=== PATIENT | female | born 1980 | race Caucasian/White ===

== ENCOUNTER 2023-11-24 08:14 | Emergency (ER) | payer BC, MEDICAID, SELFPAY ==
--- NOTE | 2023-11-24 08:23 | ECG_ITS ---
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 Measurements Intervals [place] Rate: 82 P: 23 NC: 162 QRS: 14 QRSD: 80 T: 51 QT: 378 QTc: 443 Interpretive Statements SINUS RHYTHM Compared to ECG 09/28/2016 16:29:42 No significant changes Electronically Signed On 11-25-2023 19:17:59 CDT by Bakari Gómez M.D. [id number]
--- NOTE | 2023-11-24 08:23 | XRR_ITS ---
PROCEDURE INFORMATION: Exam: XR Chest Exam date and time: 11/24/2023 8:54 AM Age: 43 years old Clinical indication: Pain; Angina pectoris; Additional info: Chest pain TECHNIQUE: Imaging protocol: Radiologic exam of the chest. Views: 1 view. COMPARISON: CR XR thoracic spine 2V [id number] 12/19/2017 10:06 AM FINDINGS: Lungs: Unremarkable. No consolidation. Pleural spaces: Unremarkable. No pleural effusion. No pneumothorax. Heart/Mediastinum: Unremarkable. No cardiomegaly. Bones/joints: Unremarkable. Soft tissues: Probable diaphragmatic hernia. XR/XR chest 1V portable [id number] IMPRESSION: No acute findings.
[2023-11-24] MEDS: lidocaine 2% viscous 15 ML, aluminum-mag hydrox-simethicon 30 ML, sucralfate oral liq 1 GM PO (08:29)
--- NOTE | 2023-11-24 08:29 | ED_ITS ---
HPI - Chest Pain 2 General: Chief Complaint: Chest Pain Stated Complaint: Chest pain Time Seen by Provider: 11/24/23 08:22 History of Present Illness: Patient has had epigastric/chest pain for the last several hours. She says it is a burning pain. She says somewhat like her usual heartburn but different and worse. He says at 1 point it felt like there was a balloon in her chest and she could not expand her ribs. No cough. No fevers. No nausea or vomiting. No abdominal pain. Review of Systems 2 Narrative: Constitutional symptoms: Negative except as documented in HPI. Skin symptoms: Negative except as documented in HPI. Eye symptoms: Negative except as documented in HPI. ENMT symptoms: Negative except as documented in HPI. Respiratory symptoms: Negative except as documented in HPI. Cardiovascular symptoms: Negative except as documented in HPI. Gastrointestinal symptoms: Negative except as documented in HPI. Genitourinary symptoms: Negative except as documented in HPI. Musculoskeletal symptoms: Negative except as documented in HPI. Neurologic symptoms: Negative except as documented in HPI. Psychiatric symptoms: Negative except as documented in HPI. Endocrine symptoms: Negative except as documented in HPI. Physical Exam 2 Narrative: EXAM NARRATIVE: General: Alert, no acute distress. Skin: Warm, dry. Head: Normocephalic, atraumatic. Neck: Supple, trachea midline. Eye: Extraocular movements are intact. Ears, nose, mouth and throat: mucosa moist. Cardiovascular: Regular, Normal peripheral perfusion. Respiratory: Lungs are clear to auscultation, respirations are non-labored, breath sounds are equal, Symmetrical chest wall expansion. Gastrointestinal: Soft, Nontender, Non distended, Normal bowel sounds. Musculoskeletal: Normal ROM, no deformity. Neurological: Alert and oriented, No focal neurological deficit observed. Psychiatric: Cooperative, appropriate mood & affect. Course 2 Vital Signs: Vital signs: Vital Signs Pulse Rate 70 11/24/23 10:00 Blood Pressure 127/83 11/24/23 10:00 Pulse Oximetry 98 11/24/23 10:00 MDM - Chest Pain Medical Decision Making Differential diagnosis for patient with chest pain includes but is not limited to and based on the above HPI, review of systems and physical exam: Pneumonia. unstable angina. angina. Acute coronary syndrome / [place]. Pulmonary embolism. Costochondritis / musculoskeletal. Pleurisy. Pericarditis. Esophageal spasm. Pancreatis. Cholecystitis. Workup: Lab work, chest X-ray and EKG ordered to evaluate, rule in and rule out above pathologies. Lab Review: Laboratory results were reviewed and interpreted by myself the emergency room physician. Lab work is unremarkable. No leukocytosis. No anemia. BUN and creatinine are 6 and 0.6. Serial troponins are negative. EKG: Time 821 rate 82 normal sinus rhythm, No ST-T changes, no ectopy, normal GA & QRS intervals, This was reviewed and interpreted by myself the ER physician at 825. Chest x-ray: No acute process. No infiltrate. No pneumothorax. No cardiomegaly. This was reviewed and interpreted by myself the ER physician. I reviewed the patient's medical record. Reexamination: Patient remained stable. No increased work of breathing. No altered mental status. No focal motor deficits. Emergency Department Assessment of Chest Pain Score (EDACS) from [employer] on 11/24/2023 All calculations should be rechecked by clinician prior to use RESULT SUMMARY: 2 points Low risk by the EDACS Score. If the patient also has: (1) EKG without new ischemic changes and (2) negative initial and 2-hour troponins, then this patient is safe for discharge to early outpatient follow-up investigation (or proceed to earlier inpatient testing). If EKG with ischemic changes or positive troponin, they are not low risk and require normal risk stratification. INPUTS: Age ?> 44 years Sex ?> 0 = Female Known coronary artery disease or >= risk factors ?> 0 = No Diaphoresis ?> 0 = No Pain radiates to arm, shoulder, neck, or jaw ?> 0 = No Pain occurred or worsened with inspiration ?> 0 = No Pain is reproduced by palpation ?> 0 = No Lab Data 11/24/23 09:20 11/24/23 09:20 Radiology Impressions Chest X-Ray 11/24/23 08:23 IMPRESSION: No acute findings. Laboratory Results WBC 7.95 10^3/uL (3.29-11.43) 11/24/23 09:20 RBC 4.52 10^6/uL (3.85-5.65) 11/24/23 09:20 Hgb 12.20 g/dL (11.27-16.99) 11/24/23 09:20 Hct 38.0 % (36-47) 11/24/23 09:20 MCV 84.1 fl (85-98) L 11/24/23 09:20 MCH 27.0 pg (27-33) 11/24/23 09:20 MCHC 32.1 g/dL (30-55) 11/24/23 09:20 RDW 16.1 % (12.1-15.1) H 11/24/23 09:20 Plt Count 303 10^3/cmm (157-399) 11/24/23 09:20 MPV 10.7 fL (7.4-10.4) H 11/24/23 09:20 Neut % (Auto) 62.1 % 11/24/23 09:20 Lymph % (Auto) 25.8 % 11/24/23 09:20 [place] % (Auto) 6.5 % 11/24/23 09:20 Eos % (Auto) 4.7 % 11/24/23 09:20 Baso % (Auto) 0.6 % 11/24/23 09:20 Neut # (Auto) 4.94 10^3/uL (1.8-7.7) 11/24/23 09:20 Lymph # (Auto) 2.1 10^3/uL (0.8-4.8) 11/24/23 09:20 [place] # (Auto) 0.5 10^3/uL (0.2-0.9) 11/24/23 09:20 Eos # (Auto) 0.4 10^3/uL (0.0-0.8) 11/24/23 09:20 Baso # (Auto) 0.1 10^3/uL (0.0-0.1) 11/24/23 09:20 Nucleated RBC % (auto) 0 % 11/24/23 09:20 Nucleated RBCs # 0.0 /100WBC 11/24/23 09:20 Sodium 137 mmol/L (136-145) 11/24/23 09:20 Potassium 4.2 mmol/L (3.5-5.1) 11/24/23 09:20 Chloride 103 mmol/L (98-107) 11/24/23 09:20 Carbon Dioxide 23 mmol/L (22-29) 11/24/23 09:20 Anion Gap 15.2 (5-19) 11/24/23 09:20 BUN 6 mg/dL (6-20) 11/24/23 09:20 Creatinine 0.6 mg/dL (0.5-0.9) 11/24/23 09:20 GFR Calculation 109.6 mL/min (90-130) 11/24/23 09:20 Glucose 111 mg/dL (65-115) 11/24/23 09:20 Calculated Osmolality 282 mOsm/kg (285-295) L 11/24/23 09:20 Calcium 9.7 mg/dL (8.5-10.5) 11/24/23 09:20 Total Bilirubin 0.2 mg/dL (0.15-1.2) 11/24/23 09:20 AST 26 U/L (0-32) 11/24/23 09:20 ALT 26 U/L (0-33) 11/24/23 09:20 Alkaline Phosphatase 116 U/L (35-105) H 11/24/23 09:20 Troponin T Baseline < 6 ng/L (0-10) 11/24/23 09:20 Troponin T 120 Minute 6.00 ng/L (0-10) 11/24/23 11:04 Delta Troponin T 0.82181 ABS# (0-10) 11/24/23 11:04 C-Reactive Protein 9.7 mg/L (0.0-4.9) H 11/24/23 09:20 Total Protein 7.8 g/dL (6.6-8.7) 11/24/23 09:20 Albumin 4.0 g/dL (3.5-5.2) 11/24/23 09:20 Globulin 3.8 g/dL (1.3-4.6) 11/24/23 09:20 All radiology interpretation(s) finalized by discharge Other Data Assessment and plan: Noncardiac chest pain -Patient had improvement with GI cocktail. This is likely GI in nature - Discharged home - Discussed findings and plan with patient. Answered any questions. - All laboratory values were reviewed and interpreted personally by myself, the ER physician - All imaging was reviewed and interpreted personally by myself, the ER physician. - Evaluation and treatment of this problem were appropriate in the emergency setting Discharge Plan Discharge Patient Disposition: Home Clinical Impression: Atypical chest pain Condition: Stable Prescriptions: New Carafate 1 gram tablet 1 g PO TID 28 Days Qty: 84 0RF Rx Instructions: with meals No Action Nexium 24HR 20 mg Capsule,Delayed Release(Dr/Ec) 80 mg PO QPM levocetirizine 5 mg tablet 5 mg PO BEDTIME PRN (Reason: ALLERGIES) Discharge Orders: Discharge ED (Routine); Ordered 11/24/23 Ordered By: Leonor Skinner Referrals: Catherine Gold, [employer] [Primary Care Provider] - Discharge Diet: Usual diet Discharge Activity: Resume usual activity Patient Instructions: Esophageal Spasm (ED), Gastroesophageal Reflux in Infants (ED) Coding Level of Care Code ED Communication Center Coordinator for Josephine Us
[2023-11-24 08:32] VITALS: BMI 43.8
[2023-11-24 09:29] LABS: Basophils # 0.1 10^3/uL (0.0-0.1); Basophils % 0.6 %; Eosinophils # 0.4 10^3/uL (0.0-0.8); Eosinophils % 4.7 %; Lymphocytes # 2.1 10^3/uL (0.8-4.8); Lymphocytes % 25.8 %; Mean Corpuscular HGB Conc 32.1 g/dL (30-55); Mean Corpuscular Volume 84.1 fl (85-98); Mean Platelet Volume 10.7 fL (7.4-10.4); Monocytes # 0.5 10^3/uL (0.2-0.9); Monocytes % 6.5 %; Neutrophils # 4.94 10^3/uL (1.8-7.7); Neutrophils % 62.1 %; Nucleated Red Blood Cells % 0 %; Platelet Count 303 10^3/cmm (157-399); Red Blood Count 4.52 10^6/uL (3.85-5.65); Red Cell Distribution Width 16.1 % (12.1-15.1); White Blood Count 7.95 10^3/uL (3.29-11.43)
[2023-11-24 09:35] VITALS: BP 125/86; PULSE 75; O2SAT 95
[2023-11-24 09:50] LABS: Troponin(5th) Baseline < 6 ng/L (0-10)
[2023-11-24 09:53] LABS: Alanine Aminotransferase 26 U/L (0-33); Alkaline Phosphatase 116 U/L (35-105); Blood Urea Nitrogen 6 mg/dL (6-20); C Reactive Protein 9.7 mg/L (0.0-4.9); Calcium 9.7 mg/dL (8.5-10.5); Carbon Dioxide 23 mmol/L (22-29); Chloride 103 mmol/L (98-107); Globulin 3.8 g/dL (1.3-4.6); Glomerular Filtration Rate 109.6 mL/min (90-130); Glucose 111 mg/dL (65-115); Osmolality Calculated 282 mOsm/kg (285-295); Sodium 137 mmol/L (136-145); Total Bilirubin 0.2 mg/dL (0.15-1.2); Total Protein 7.8 g/dL (6.6-8.7)
[2023-11-24 09:59] LABS: Anion Gap 15.2 (5-19); Aspartate Amino Transferase 26 U/L (0-32); Potassium 4.2 mmol/L (3.5-5.1)
[2023-11-24 10:00] VITALS: BP 127/83; PULSE 70; O2SAT 98
--- NOTE | 2023-11-24 11:01 | ECG_ITS ---
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 Measurements Intervals [place] Rate: 73 P: 8 [place]: 172 QRS: 5 QRSD: 85 T: 26 QT: 377 QTc: 418 Interpretive Statements SINUS RHYTHM Compared to ECG 11/24/2023 08:21:36 No significant changes Electronically Signed On 11-25-2023 19:49:59 CDT by Bakari Gómez M.D. [email or web address] medical [email or web address] Enginesmercy health west [email or web address]/[id number]
[2023-11-24 11:26] LABS: Troponin 5 2HR Delta 0.00001 ABS# (0-10)
[2023-11-24 11:49] VITALS: BP 125/80; PULSE 72; O2SAT 97
== END 2023-11-24 11:50 | disposition home or self-care (01) ==
PROVIDERS: Emergency Provider Emergency Medicine; PCP Nurse Practitioner Family
DX: R07.89 Other chest pain (principal)
CPT/HCPCS: 71045; 80053; 84484; 85025; 86140; 93005; 99285

== ENCOUNTER 2024-02-01 22:42 | Emergency (ER) | payer BC, MEDICAID, SELFPAY ==
--- NOTE | 2024-02-01 22:43 | ECG_ITS ---
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 Measurements Intervals [place] Rate: 65 P: 21 PA: 161 QRS: 6 QRSD: 89 T: 24 QT: 388 QTc: 405 Interpretive Statements SINUS RHYTHM POSSIBLE RIGHT VENTRICULAR CONDUCTION DELAY [RSR (QR) IN V1/V2] Compared to ECG 11/24/2023 11:01:07 No significant changes Electronically Signed On 02-02-2024 18:45:36 CDT by Mykel Wick M.D. [id number]
[2024-02-01 22:44] VITALS: BP 124/85; PULSE 63; RESP 16; TEMP 36.6; O2SAT 99
--- NOTE | 2024-02-01 22:44 | XRR_ITS ---
PROCEDURE INFORMATION: Exam: XR Chest Exam date and time: 02/01/2024 11:05 PM Age: 43 years old Clinical indication: Chest wall pain and radiating; Additional info: Chest pain, radiates to R shoulder TECHNIQUE: Imaging protocol: Radiologic exam of the chest. Views: 1 view. COMPARISON: CR XR chest 1V portable [id number] 11/24/2023 8:54 AM FINDINGS: Lungs: Unremarkable. No consolidation. Pleural spaces: Unremarkable. No pleural effusion. No pneumothorax. Heart/Mediastinum: Heart remains perhaps slightly enlarged. Small to moderate-sized hiatal hernia. No change from prior. Bones/joints: Unremarkable. XR/XR chest 1V portable [id number] IMPRESSION: 1. No acute findings. 2. Borderline large heart with hiatal hernia again seen.
[2024-02-01 23:10] LABS: Basophils % 0.4 %; Eosinophils # 0.2 10^3/uL (0.0-0.8); Eosinophils % 2.3 %; Hematocrit 35.6 % (36-47); Lymphocytes # 2.7 10^3/uL (0.8-4.8); Lymphocytes % 25.2 %; Mean Corpuscular Hemoglobin 26.5 pg (27-33); Mean Corpuscular Volume 82.6 fl (85-98); Mean Platelet Volume 10.7 fL (7.4-10.4); Monocytes # 0.6 10^3/uL (0.2-0.9); Monocytes % 5.6 %; Neutrophils # 6.99 10^3/uL (1.8-7.7); Neutrophils % 66.1 %; Nucleated Red Blood Cells % 0 %; Platelet Count 301 10^3/cmm (157-399); Red Blood Count 4.31 10^6/uL (3.85-5.65); Red Cell Distribution Width 15.6 % (12.1-15.1); White Blood Count 10.56 10^3/uL (3.29-11.43)
[2024-02-01 23:19] LABS: HCG, Serum Qual Negative (Negative)
[2024-02-01 23:28] LABS: Troponin(5th) Baseline < 6 ng/L (0-10)
[2024-02-01 23:34] LABS: Alanine Aminotransferase 14 U/L (0-33); Alkaline Phosphatase 113 U/L (35-105); Aspartate Amino Transferase 16 U/L (0-32); Blood Urea Nitrogen 11 mg/dL (6-20); Calcium 8.8 mg/dL (8.5-10.5); Carbon Dioxide 20 mmol/L (22-29); Chloride 102 mmol/L (98-107); Globulin 2.9 g/dL (1.3-4.6); Glomerular Filtration Rate 109.6 mL/min (90-130); Glucose 108 mg/dL (65-115); Osmolality Calculated 278 mOsm/kg (285-295); Sodium 134 mmol/L (136-145); Total Bilirubin 0.2 mg/dL (0.15-1.2); Total Protein 6.9 g/dL (6.6-8.7)
--- NOTE | 2024-02-02 00:29 | ED_ITS ---
HPI - Chest Pain 2 General: Chief Complaint: Chest Pain Stated Complaint: chest pain through back Time Seen by Provider: 02/01/24 22:52 History of Present Illness: Patient presents to the ER with right-sided chest pain/epigastric pain that radiates straight to her back and her shoulder blade area. Patient says she has had this before. Patient has a history of gastroesophageal reflux disease. Patient took Nexium, Carafate, baking soda water and ice cream with no relief today. This started about 4 PM and she has not ate or drink anything other than medicine since then. Patient denies any shortness of breath, nausea, diaphoresis, she said the last time she had this they gave her GI cocktail and it helped tremendously. Review of Systems 2 General: Reports: 10 or more systems reviewed and unremarkable except in HPI and below Physical Exam 2 Const: COMMON NORMALS: no acute distress, average body habitus, patient oriented x3, no limitations, healthy appearing, alert and well nourished Neck/C-Spine: COMMON NORMALS: no JVD Chest: COMMONS NORMALS: normal inspection of the chest and normal palpation of entire chest wall Resp: COMMON NORMALS: normal respiratory effort, No retractions, No use of accessory muscles and clear to auscultation bilaterally AUSCULTATION: clear to auscultation bilaterally Cardio: COMMON NORMALS: no JVD, regular rate, regular rhythm, S1 normal heart sound present, S2 normal heart sound present, No gallops present (Cardio), No clicks present (Cardio), No murmurs present (Cardio) and No rub (Cardio) R ATE: regular rate RHYTHM: regular rhythm HEART SOUNDS: S1 normal heart sound present and S2 normal heart sound present GI: COMMON NORMALS: Normal to inspection, nondistended, normoactive bowel sounds present, Soft to palpation, non-tender, No hepatosplenomegaly present and no masses PALPATION: Yes Soft to palpation and Yes No hepatosplenomegaly present Neuro: COMMON NORMALS: patient oriented x3 SENSORIUM/ORIENTATION: Yes alert Course 2 Vital Signs: Vital signs: Vital Signs Temperature 97.9 F 02/01/24 22:44 Pulse Rate 62 02/02/24 04:07 Respiratory Rate 16 02/02/24 04:07 Blood Pressure 135/83 02/02/24 04:07 Pulse Oximetry 98 02/02/24 04:07 Oxygen Delivery Me thod Room Air 02/02/24 04:07 MDM - Chest Pain Medical Decision Making Patient presented with chest pain and was worked up in a standard chest pain fashion, patient was given a GI cocktail which seemed to relieve the pain. Lab work was unremarkable. Patient be discharged home with a diagnosis of GERD and placed on Pepcid on top of her Nexium and Carafate. Differential Diagnosis Unlikely acute massive pulmonary embolism, acute respiratory failure, acute myocardial infarction, cardiac arrest or sudden cardiac Medical Records I reviewed the patient's medical records. Lab Data I reviewed the patient's lab results. 02/01/24 23:04 02/01/24 23:04 Radiology Impressions Chest X-Ray 02/01/24 22:44 IMPRESSION: 1. No acute findings. 2. Borderline large heart with hiatal hernia again seen. Laboratory Results WBC 10.56 10^3/uL (3.29-11.43) 02/01/24 23:04 RBC 4.31 10^6/uL (3.85-5.65) 02/01/24 23:04 Hgb 11.40 g/dL (11.27-16.99) 02/01/24 23:04 Hct 35.6 % (36-47) L 02/01/24 23:04 MCV 82.6 fl (85-98) L 02/01/24 23:04 MCH 26.5 pg (27-33) L 02/01/24 23:04 MCHC 32.0 g/dL (30-55) 02/01/24 23:04 RDW 15.6 % (12.1-15.1) H 02/01/24 23:04 Plt Count 301 10^3/cmm (157-399) 02/01/24 23:04 MPV 10.7 fL (7.4-10.4) H 02/01/24 23:04 Neut % (Auto) 66.1 % 02/01/24 23:04 Lymph % (Auto) 25.2 % 02/01/24 23:04 [place] % (Auto) 5.6 % 02/01/24 23:04 Eos % (Auto) 2.3 % 02/01/24 23:04 Baso % (Auto) 0.4 % 02/01/24 23:04 Neut # (Auto) 6.99 10^3/uL (1.8-7.7) 02/01/24 23:04 Lymph # (Auto) 2.7 10^3/uL (0.8-4.8) 02/01/24 23:04 Person # (Auto) 0.6 10^3/uL (0.2-0.9) 02/01/24 23:04 Eos # (Auto) 0.2 10^3/uL (0.0-0.8) 02/01/24 23:04 Baso # (Auto) 0.0 10^3/uL (0.0-0.1) 02/01/24 23:04 Nucleated RBC % (auto) 0 % 02/01/24 23:04 Nucleated RBCs # 0.0 /100WBC 02/01/24 23:04 Sodium 134 mmol/L (136-145) L 02/01/24 23:04 Potassium 4.0 mmol/L (3.5-5.1) 02/01/24 23:04 Chloride 102 mmol/L (98-107) 02/01/24 23:04 Carbon Dioxide 20 mmol/L (22-29) L 02/01/24 23:04 Anion Gap 16.0 (5-19) 02/01/24 23:04 BUN 11 mg/dL (6-20) 02/01/24 23:04 Creatinine 0.6 mg/dL (0.5-0.9) 02/01/24 23:04 GFR Calculation 109.6 mL/min (90-130) 02/01/24 23:04 Glucose 108 mg/dL (65-115) 02/01/24 23:04 Calculated Osmolality 278 mOsm/kg (285-295) L 02/01/24 23:04 Calcium 8.8 mg/dL (8.5-10.5) 02/01/24 23:04 Total Bilirubin 0.2 mg/dL (0.15-1.2) 02/01/24 23:04 AST 16 U/L (0-32) 02/01/24 23:04 ALT 14 U/L (0-33) 02/01/24 23:04 Alkaline Phosphatase 113 U/L (35-105) H 02/01/24 23:04 Troponin T Baseline < 6 ng/L (0-10) 07/04/24 23:04 Troponin T 120 Minute 6.00 ng/L (0-10) 02/02/24 03:50 Delta Troponin T 0.04614 ABS# (0-10) 02/02/24 03:50 Total Protein 6.9 g/dL (6.6-8.7) 02/01/24 23:04 Albumin 4.0 g/dL (3.5-5.2) 02/01/24 23:04 Globulin 2.9 g/dL (1.3-4.6) 02/01/24 23:04 HCG, Qual Negative (Negative) 02/01/24 23:04 All radiology interpretation(s) finalized by discharge Discharge Plan Discharge Patient Disposition: Home Clinical Impression: Chest pain due to GERD Condition: Stable Prescriptions: New Pepcid 40 mg tablet 40 mg PO BID Qty: 30 0RF No Action pantoprazole 40 mg tablet,delayed release (DR/EC) PO DAILY sucralfate 1 gram tablet 1 g PO TID Nexium 24HR 20 mg Capsule,Delayed Release(Dr/Ec) 80 mg PO QPM levocetirizine 5 mg tablet 5 mg PO BEDTIME PRN (Reason: ALLERGIES) Discharge Orders: Discharge ED (Routine); Ordered 02/02/24 Ordered By: Alfonso Jimenez Referrals: Peter Urbano MD [Primary Care Provider] - 1 week Patient Instructions: GERD (Gastroesophageal Reflux Disease) (ED), Diet for Stomach Ulcers and Gastritis (ED), Chest Pain - Noncardiac Activity Restrictions/Additional Instructions: Your workup in ER was unremarkable for cardiac related issues. He was given a GI cocktail to help ease the discomfort. He will be placed on Pepcid in addition to your Carafate, Protonix or Nexium. Please take all medicines as directed. Please follow-up with [facility] practitioner in the next 7 days for further evaluation and treatment. Coding Level of Care Code ED Blood Donor Recruiter Supervisor for Josephine Us
[2024-02-02] MEDS: lidocaine 2% viscous 15 ML, aluminum-mag hydrox-simethicon 30 ML, sucralfate oral liq 1 GM PO (00:32)
[2024-02-02 01:00] VITALS: BP 124/73; PULSE 62; RESP 16; O2SAT 100
--- NOTE | 2024-02-02 03:29 | ECG_ITS ---
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 Measurements Intervals [place] Rate: 61 P: 18 [place]: 170 QRS: 14 QRSD: 78 T: 22 QT: 392 QTc: 396 Interpretive Statements SINUS RHYTHM Compared to ECG 02/01/2024 22:43:31 No significant changes Electronically Signed On 02-02-2024 18:51:36 CDT by Mykel Wick M.D. [id number]
[2024-02-02 03:32] VITALS: BP 114/66; PULSE 63; RESP 16; O2SAT 98
[2024-02-02 04:07] VITALS: BP 135/83; PULSE 62; RESP 16; O2SAT 98
[2024-02-02 04:19] LABS: Troponin 5 2HR Delta 0.00001 ABS# (0-10)
[2024-02-02 04:39] VITALS: BP 131/86; PULSE 65; RESP 18; O2SAT 99
[2024-02-02 04:42] VITALS: BP 131/86; PULSE 65; RESP 18; TEMP 36.6; O2SAT 99
== END 2024-02-02 04:44 | disposition home or self-care (01) ==
PROVIDERS: Physician Assistant; Emergency Provider Emergency Medicine; PCP Family Medicine
DX: R07.9 Chest pain, unspecified (principal); K21.9 Gastro-esophageal reflux disease without esophagitis; Z79.899 Other long term (current) drug therapy
CPT/HCPCS: 36415; 71045; 80053; 84484; 84703; 85025; 93005; 99285

== ENCOUNTER 2024-02-14 10:32 | Day surgery (SDC) | payer BC, MEDICAID, SELFPAY ==
[2024-02-14] MEDS: sodium chloride 0.9% 1,000 ML 30 ML IV (10:55)
[2024-02-14 11:05] VITALS: BP 119/72; PULSE 71; RESP 18; TEMP 36.2; O2SAT 97; BMI 43.8
[2024-02-14 11:16] LABS: OR HCG Qualitative Urine Negative (Negative)
--- NOTE | 2024-02-14 12:16 | ANES.PREANE2 ---
Pre-Anesthetic Assessment Height/Weight: Height 1.7 m Weight 127.006 kg Temp Pulse Resp BP Pulse Ox O2 Del Method 97.2 F L 71 18 119/72 97 Room Air 02/14/24 11:05 02/14/24 11:05 02/14/24 11:05 02/14/24 11:05 02/14/24 11:05 02/14/24 11:05 Preop Diagnosis: gerd Operation Date: 02/14/24 11:45 Proposed Procedures p EGD 98871, K21.9(Not Applicable) - Sharif Ceron, DO Was Beta Leela taken within 24 hours: N/A Was Clonidine taken within 24 hours: N/A Last intake: Intake Last Liquid Date 02/13/24 Last Liquid Time 23:55 Last Solid Date 02/13/24 Last Solid Time 20:00 Social Tobacco and No alcohol vapes and THC daily Exam alert, oriented x 3, clear to auscultation bilaterally and regular rate & rhythm Airway Submandibular: within normal limits Cervical ROM: within normal limits Mallampati: Class III Comments: Comments: prominent front upper teeth. blackened, chipped History/ROS No significant history except as noted Pulmonary None reported vapes and THC CV/HEM Palpitations palpitations, saw cardiology, has done a holter monitor None reported Hepatic None reported GI Gastroesophageal Reflux Disease no symptoms today Metabolic Morbid Ob[place] [facility] [place] None reported Neuropsych Anxiety and Depression panic attacks Anesthetic Plan ASA status: 2 Anesthesia: Anesthesia Evaluation and MAC Risk of > 500 ml blood loss (7ml/kg in children): Yes, adequate IV access and fluids planned Medications/Allergies Home Medications Medication Instructions Recorded Confirmed Last Taken Type esomeprazole magnesium 20 mg 80 mg PO QPM 11/24/23 02/13/24 02/13/24 History capsule,delayed release (Nexium 24HR) levocetirizine 5 mg tablet 5 mg PO BEDTIME PRN ALLERGIES 11/24/23 02/13/24 02/13/24 History sucralfate 1 gram tablet 1 g PO TID 01/19/24 02/13/24 02/13/24 History famotidine 40 mg tablet (Pepcid) 40 mg PO BID #30 tabs 02/02/24 02/14/24 02/14/24 Rx exnysjc-paqcljylddceb-lilkzums 250 1 tab PO Q6H PRN Headache 07/02/13/24 01/30/24 History mg-250 mg-65 mg tablet (Excedrin Migraine) Allergies Allergy/AdvReac Type Severity Reaction Status Date / Time Pertussis Vaccines Allergy Unknown Verified 02/13/24 11:25 sun Allergy Intermediate ALGY-Rash Uncoded 02/13/24 11:25 Data Anesthesia Cardiac Studies: Holter Monitor 06/17/20
--- NOTE | 2024-02-14 12:54 | W.PM.OPSUD ---
Surgery/Procedure H&P Update DATE OF PROCEDURE: February 14, 2024 DATE H&P PERFORMED: 01/19/24 H&P UPDATE INFORMATION: I have reviewed H&P completed within last 30 days, I have examined patient prior to procedure and No changes to prior documentation PREOP DIAGNOSIS: gerd PLANNED PROCEDURE: Operation Date: 02/14/24 11:45 Proposed Procedures p EGD 38612, K21.9(Not Applicable) - Sharif Ceron, DO
[2024-02-14 13:28] VITALS: BP 103/59; PULSE 70; RESP 12; TEMP 36.1; O2SAT 97
[2024-02-14 13:33] VITALS: BP 109/64; PULSE 66; RESP 16; O2SAT 97
[2024-02-14 13:43] VITALS: BP 107/68; PULSE 70; RESP 18; O2SAT 97
--- NOTE | 2024-02-14 14:05 | ANE.PACU2 ---
Inpatient post-anesthesia follow up: Airway intact: Yes Vital signs: Temperature 97.0 F Pulse Rate 70 Respiratory Rate 18 Blood Pressure 107/68 Pulse Oximetry 97 Oxygen Delivery Me thod Room Air Oxygen Flow Rate Fraction of Inspir ed Oxygen Hydration adequate: Yes Nausea and vomiting: No Pain level: 1 Mental status: Baseline
== END 2024-02-14 14:02 | disposition home or self-care (01) ==
PROVIDERS: Anesthesiology; PCP Family Medicine; Visit Provider Surgery
PROC: 0DJ08ZZ Inspection of Upper Intestinal Tract, Via Natural or Artificial Opening Endoscopic (ICD-10-PCS; CPT 43235; principal; 2024-02-14 11:45)
DX: K21.9 Gastro-esophageal reflux disease without esophagitis (principal); K44.9 Diaphragmatic hernia without obstruction or gangrene; F17.290 Nicotine dependence, other tobacco product, uncomplicated
CPT/HCPCS: 43239; 81025; 88305; J2704; J7030

== ENCOUNTER 2024-03-15 08:44 | Outpatient (CLI) | payer BC, MEDICAID, SELFPAY ==
--- NOTE | 2024-03-15 09:00 | US_ITS ---
WS: [id number] ULTRASOUND ABDOMEN LIMITED CLINICAL INFORMATION: abdominal pain COMPARISON: None. FINDINGS: Liver Size: Enlarged Craniocaudal length: 17.3 cm. Echogenicity: Coarse Surface nodularity: None. Mass (size and location): None. Bile ducts Intrahepatic ducts: Normal. Common bile duct diameter: 0.4 cm. Gallbladder Cholelithiasis Gallstones: Present Gallbladder sludge: Present Gallbladder wall thickening: None. Pericholecystic fluid: None. Sonographic Barker sign: Absent. Pancreas Not well visualized Right kidney: Normal. Hydronephrosis: None. Size: 12.1 cm x 4.5 cm x 5.0 cm. Abdominal aorta and IVC Visualized portions are normal. Ascites: None. US/US gall bladder 40706 IMPRESSION: 1. Hepatomegaly with mild fatty infiltration. 2. Cholelithiasis and sludge. No gallbladder wall thickening or pericholecysti c fluid. 3. Normal common bile duct. 4. Pancreas not well visualized. 5. No hydronephrosis in the RIGHT kidney.
== END 2024-03-15 08:45 | disposition home or self-care (01) ==
LOC: RAD 08:45
PROVIDERS: PCP Family Medicine; Visit Provider Surgery
DX: R10.9 Unspecified abdominal pain (principal); K76.0 Fatty (change of) liver, not elsewhere classified; K80.20 Calculus of gallbladder without cholecystitis without obstruction
CPT/HCPCS: 76705

== ENCOUNTER → 2024-03-20 13:46 | Outpatient (BNVA) | payer BC, MEDICAID, SELFPAY | PROVIDERS: PCP Family Medicine; Referring Provider Nurse Practitioner Family; Visit Provider Specialist | DX: R25.1 Tremor, unspecified (principal) | CPT/HCPCS: 36415; 84439; 84443 ==

== ENCOUNTER 2024-04-04 07:20 | Day surgery (SDC) | payer BC, MEDICAID, SELFPAY ==
[2024-04-04] VITALS (15 sets, daily range): BP systolic 108–155; BP diastolic 69–101; PULSE 62–84; RESP 12–18; TEMP 36.1–36.3; O2SAT 92–100; BMI 43.0
--- NOTE | 2024-04-04 07:45 | ANES.PREANE2 ---
Pre-Anesthetic Assessment Height/Weight: Height 1.7 m Operation Date: 04/04/24 08:05 Proposed Procedures p Laparoscopic Cholecystectomy 53067, R10.9(Not Applicable) - Sharif Ceron DO Familial anesthetic complications: PONV Was Beta Leela taken within 24 hours: N/A Was Clonidine taken within 24 hours: N/A Last intake: > 8hrs Social Tobacco Vapes, THC use Exam alert, oriented x 3, clear to auscultation bilaterally and regular rate & rhythm Airway Mallampati: Class III Dentition: chipped (Rotting and discolored) Comments: Comments: Recessed jaw GI Gastroesophageal Reflux Disease Metabolic Morbid Obesity Neuropsych tremor Anesthetic Plan ASA status: 2 Anesthesia: General Risk of > 500 ml blood loss (7ml/kg in children): No Medications/Allergies Home Medications Medication Instructions Recorded Confirmed Last Taken Type esomeprazole magnesium 20 mg 80 mg PO QPM 11/24/23 04/03/24 04/02/24 History capsule,delayed release (Nexium 24HR) levocetirizine 5 mg tablet 5 mg PO BEDTIME PRN ALLERGIES 11/24/23 04/03/24 02/13/24 History sucralfate 1 gram tablet 1 g PO TID 01/19/24 04/03/24 02/13/24 History nsnbfdp-qgpqzagaerscw-jbmlyqrb 250 1 tab PO Q6H PRN Headache 02/13/24 04/03/24 01/30/24 History mg-250 mg-65 mg tablet (Excedrin Migraine) marijuana 2 inh inhalation DAILY 03/20/24 04/03/24 04/02/24 History propranolol 20 mg tablet 20 mg PO BID #180 tabs 03/25/24 04/03/24 04/03/24 21:30 Rx Allergies Allergy/AdvReac Type Severity Reaction Status Date / Time Pertussis Vaccines Allergy Unknown Verified 04/03/24 15:45 sun Allergy Intermediate ALGY-Rash Uncoded 04/03/24 15:45 PFSH Anesthesia Family History Mother Heart disease Social History Smoking and tobacco/nicotine status: current every day tobacco/nicotine user (vape) e-cigarettes E-Cigarette Details: with nicotine Alcohol intake: current Alcohol intake frequency: holidays/special occasions only Substance/Drug Use: current Data Anesthesia Cardiac Studies: Holter Monitor 06/17/20
--- NOTE | 2024-04-04 07:55 | W.PM.OPSUD ---
Surgery/Procedure H&P Update DATE OF PROCEDURE: April 04, 2024 DATE H&P PERFORMED: 03/22/24 H&P UPDATE INFORMATION: I have reviewed H&P completed within last 30 days, I have examined patient prior to procedure and No changes to prior documentation PLANNED PROCEDURE: Operation Date: 04/04/24 08:05 Proposed Procedures p Laparoscopic Cholecystectomy 23504, R10.9(Not Applicable) - Sharif Ceron, DO
[2024-04-04] MEDS: sodium chloride 0.9% 1,000 ML 30 ML IV (08:06)
[2024-04-04] MEDS: scopolamine 1.5 Patch 1 PATCH TRANSDERMA (08:06)
[2024-04-04] MEDS: ceFAZolin 3,000 MG in sodium chloride 0.9% (plus) 100 ML 200 MG IV (08:13)
[2024-04-04 08:14] LABS: OR HCG Qualitative Urine Negative (Negative)
[2024-04-04] MEDS: lidocaine-epi 2% PF 1:200,000 20 mL SDV XX (08:40)
--- NOTE | 2024-04-04 08:58 | P.OP_ITS ---
Operative Report Date of procedure: April 04, 2024 Surgeon: Sharif Ceron DO Brief History: This very pleasant 43-year-old female presented to my office for symptomatic cholelithiasis. Laparoscopic cholecystectomy is indicated. The risks and benefits were splinted documented. Procedure: Preoperative diagnosis: Symptomatic cholelithiasis Postoperative diagnosis: Same Procedure performed: Laparoscopic cholecystectomy Surgeon: Dr. Sharif Ceron DO Estimated blood loss: 5 mL Specimens: Gallbladder to pathology Complications: None apparent Description of procedure: Patient was wheeled into the operative room and placed on the OR table in a supine position. Abdomen was inspected prepped and draped in usual sterile fashion. Time-out was performed and all present were in agreement. A 15 blade scalp was used to make a stab incision in the left upper quadrant and intra- abdominal insufflation was achieved using a Veress needle. After localizing the tissue incisions were made and a 5 millimeter trocar was placed into the umbilicus as well as 2 in the right upper quadrant. A 12 millimeter trocar was placed in the epigastrium. Gallbladder was grasped and elevated. The triangle of Calot was carefully dissected using blunt dissection and electrocautery until the triangle of Calot clearly identified. The cystic duct was clipped proximally and double clipped distally. The duct was then ligated proximally. The cystic artery was doubly clipped and ligated. The gallbladder was then removed from the liver bed using electrocautery. The gallbladder was removed from the abdomen using an Endo-Catch bag through the epigastric incision. The liver bed was inspected and no bleeding was seen. The abdomen was irrigated and suctioned. All ports removed. Skin was washed and dried. Incisions were closed with 4-0 Monocryl in a subcuticular interrupted fashion. Skin glue was applied. Patient tolerated the procedure well.
[2024-04-04] MEDS: HYDROmorphone 1 mg/mL INJ 1 mL (09:26)
[2024-04-04] MEDS: ondansetron 2 mg/ML SDV 2 mL 4 MG IVP ×2 (09:35→10:45)
--- NOTE | 2024-04-04 11:24 | SUR.PHASEII ---
Patient is very drowsy still, still complains of being nauseous. Patient seen by anesthesia for nausea, she tells him she is nauseous but wants to go home.
--- NOTE | 2024-04-04 12:08 | SUR.PHASEII ---
When patient was ready to change into home clothes, patient had some minor bleeding from a lap site. Extra dermabond put onto site and bleeding stopped.
--- NOTE | 2024-04-04 12:11 | ANE.PACU2 ---
Inpatient post-anesthesia follow up: Airway intact: Yes Vital signs: Temperature 97.0 F Pulse Rate 63 Respiratory Rate 17 Blood Pressure 111/80 Pulse Oximetry 97 Oxygen Delivery Me thod Room Air Oxygen Flow Rate 6 Fraction of Inspir ed Oxygen Hydration adequate: Yes Nausea and vomiting: No Pain level: 1 Mental status: Baseline
== END 2024-04-04 12:11 | disposition home or self-care (01) ==
PROVIDERS: Student in an Organized Health Care Education/Training Program; PCP Family Medicine; Visit Provider Surgery
PROC: 0FT44ZZ Resection of Gallbladder, Percutaneous Endoscopic Approach (ICD-10-PCS; CPT 47562; principal; 2024-04-04 08:05)
DX: K80.10 Calculus of gallbladder with chronic cholecystitis without obstruction (principal)
CPT/HCPCS: 47562; 81025; 88304; J0690; J1100; J1170; J2250; J2405; J2704; J3010; J3490; J7030

== ENCOUNTER 2024-07-30 08:19 | Outpatient (CLI) | payer BC, MEDICAID, SELFPAY ==
--- NOTE | 2024-07-30 08:30 | FL_ITS ---
WS: [id number] Barium swallow and esophagram, 07/30/2024 Clinical Data: Frequent vomiting at night Comparison: None. Fluoroscopy time: 1min [id number] # of spot films: 9 Findings: The patient swallowed the thick and thin barium, and it flowed through the hypopharynx without hesita tion. No stricture, mass, polyp or erosion was seen. No aspiration or penetration occurred. The barium entered the esophagus and there was poor motility throughout. There was a moderate hiatal hernia. No stricture, mass, polyp, erosion or ulceration could be seen. There was minimal reflux. Bar ium did pass into the stomach.. FL/FL barium swallow [id number] Impression: 1. Poor esophageal motility. 2. Moderate hiatal hernia with minimal gastroesophageal reflux.
== END 2024-07-30 08:20 | disposition home or self-care (01) ==
LOC: RAD 08:20
PROVIDERS: PCP Family Medicine; Visit Provider Surgery
DX: K21.9 Gastro-esophageal reflux disease without esophagitis (principal); R94.2 Abnormal results of pulmonary function studies; K44.9 Diaphragmatic hernia without obstruction or gangrene
CPT/HCPCS: 74220

== ENCOUNTER 2025-03-19 13:24 | Outpatient (CLI) | payer BC, MEDICAID, SELFPAY ==
--- NOTE | 2025-03-19 13:28 | MM_ITS ---
WS: [id number] BILATERAL 3D TOMOSYNTHESIS DIGITAL SCREENING MAMMOGRAPHY WITH CAD CLINICAL INFORMATION: SCREENING HISTORY: Screening mammogram. No current complaints. COMPARISON: Baseline TECHNIQUE: Bilateral CC and MLO views. FINDINGS: Scattered fibroglandular densities bilaterally. No suspicious focal mass, asymmetry, calcifications, or architectural distortion. No evidence of malignancy. A few incidental punctate calcifications. MM/MM [facility] tomosynthesis [id number] IMPRESSION: DENSITY: There are scattered areas of fibroglandular density. BI-RADS: 2 - Benign. FOLLOW UP: 1 Year Follow-up Recommend return to annual screening mammography.
== END 2025-03-19 13:25 | disposition home or self-care (01) ==
LOC: RAD 13:25
PROVIDERS: PCP Family Medicine; Visit Provider Nurse Practitioner Family
DX: Z12.31 Encounter for screening mammogram for malignant neoplasm of breast (principal); R92.323 Mammographic fibroglandular density, bilateral breasts; R92.1 Mammographic calcification found on diagnostic imaging of breast
CPT/HCPCS: 77063; 77067